=== PATIENT | female | born 1990 | race Two or more races ===

== ENCOUNTER 2017-07-13 12:29 | Emergency (ER) | payer MEDICAID, OTHER ==
[~2017-07-13] VITALS: Ht 165.1 cm; Wt 87.5 kg
[2017-07-13 12:37] VITALS: BP 119/77
== END 2017-07-13 14:40 | disposition left against medical advice (07) ==
LOC: ER 12:29
DX: S61.511D Laceration without foreign body of right wrist, subsequent encounter (principal); Z48.02 Encounter for removal of sutures; Z53.21 Procedure and treatment not carried out due to patient leaving prior to being seen by health care provider; X58.XXXD Exposure to other specified factors, subsequent encounter